=== PATIENT | female | born 1950 | race American Indian/Alaskan Native ===

== ENCOUNTER 2017-06-22 14:08 | Emergency (ER) | payer MEDICARE ==
[2017-06-22] MEDS ORDERED: ASPIRIN PO ONE (14:47)
[2017-06-22 15:15] LABS: Hematocrit 39.7 % (30.3-42.9); Hemoglobin 13.3 gm/dl (10.1-14.3); Mean Corpuscular HGB Conc 34 % (30-34); Mean Corpuscular Hemoglobin 32 pg (28-32); Mean Corpuscular Volume 95 fl (79-97); Platelet Count 198 K/mm3 (140-440); Red Blood Count 4.18 M/mm3 (3.65-5.03); Red Cell Distribution Width 13.6 % (13.2-15.2)
[2017-06-22 15:42] LABS: BUN/Creatinine Ratio 23; Blood Urea Nitrogen 14 mg/dL (7-17); Calcium 9.7 mg/dL (8.4-10.2); Hemolysis Index 7
[2017-06-22 15:55] LABS: Basophils % (Manual) 0 % (0.0-1.8); Ovalocytes Few; Platelet Estimate Consistent w Auto; Total Cells Counted 100
[2017-06-23] MEDS ORDERED: ASPIRIN ONE (08:21)
[2017-06-23] MEDS ORDERED: ULTRAM PO ONE (09:06)
--- NOTE | 2017-06-23 09:39 | Emergency Department Report ---
ED Chest Pain HPI - General Chief Complaint: Chest Pain Stated Complaint: SENT BY Time Seen by Provider: 06/23/17 08:34 Source: patient Mode of arrival: Ambulatory Limitations: No Limitations - History of Present Illness Initial Comments: 67-year-old female with a past medical history of GERD, hypertension, and previous back surgery presents to the hospital complaints of left-sided chest pain 2 days. Pain is constant, sharp, worse with movement and deep inspiration. Patient also has pain to her bilateral shoulder area. She denies nausea, vomiting, diaphoresis, or shortness of breath. Patient has similar episodes that went away spontaneously but this is more persistent. She denies any recent travel, history of PE/DVT, cough or cold symptoms, or fever. Patient was sent to the ED for evaluation after being evaluated her GI appointment for GERD. She reports last stress test one year ago with Verónica Doty. [facility], [facility] contacted a last cardiac workup was 2014 including negative stress test and cardiac echo. Severity scale (0 -10): 5 - Related Data Allergies Allergy/AdvReac Type Severity Reaction Status Date / Time celecoxib [From Celebrex] AdvReac Unknown Verified 06/23/17 08:24 Heart Score - HEART Score History: Slightly suspicious EKG: Non-specific Age: > 65 Risk factors: 1-2 risk factors Troponin: < normal limit HEART Score: 4 ED Review of Systems ROS: Stated complaint: SENT BY Other details as noted in HPI Comment: All other systems reviewed and negative Other: Constitutional: No fevers chills Eyes: No eye pain visual changes ENT: No ear pain or throat pain Neck: Denies pain Respiratory: Denies cough wheezing shortness of breath Cardiovascular: Denies palpitations, syncope GI: Denies abdominal pain, nausea, vomiting, diarrhea : Denies dysuria Musculoskeletal: Denies back pain Skin: Denies rash, lesions, erythema Neurologic: Denies headache, numbness, weakness Psychiatric: Denies suicidal ideation, hallucinations ED Past Medical Hx - Past Medical History Previous Medical History?: Yes Hx GERD: Yes Additional medical history: High Cholesterol - Surgical History Past Surgical History?: Yes Additional Surgical History: Back Surgery - Social History Smoking Status: Never Smoker Substance Use Type: Alcohol ED Physical Exam - General Limitations: No Limitations - Other Other exam information: General: No limitations, patient is alert in no acute distress Head exam: Atraumatic, normocephalic Eyes exam: Normal appearance ENT: Moist mucous membrane, normal oropharynx Neck exam: Normal inspection, full range of motion Respiratory exam: Clear to auscultation bilateral, no wheezes, rales, crackles Cardiovascular: Normal rate and rhythm, normal heart sounds. Chest wall nontender to palpation but increased pain with inspiration and movement Abdomen: Soft, nondistended, and nontender, with normal bowel sounds, no rebound, or guarding Extremity: Full range of motion normal inspection no deformity, no calf tenderness or edema Back: Normal Inspection, full range of motion, no tenderness Neurologic: Alert, oriented x3, cranial nerves intact, no motor or sensory deficit Psychiatric: normal affect, normal mood Skin: Warm, dry, intact ED Course Vital Signs 06/22/17 06/22/17 06/23/17 14:41 21:25 02:29 Temperature 98.1 F 98.6 F 98.2 F Pulse Rate 69 66 70 Respiratory 16 18 18 Rate Blood Pressure 134/79 148/83 136/59 O2 Sat by Pulse 99 98 98 Oximetry 06/23/17 06/23/17 08:16 09:25 Temperature 98.1 F Pulse Rate 66 Respiratory 18 16 Rate Blood Pressure 137/66 O2 Sat by Pulse 98 Oximetry - Reevaluation(s) Reevaluation #1: 06/23/17 10:05 pt stable received tramadol for pain - Consultations Consultation #1: 06/23/17 09:12 case d/w P WHite antonio heart: pt had neg stress and echo 2014 SUDHEER score - Sudheer Score Age > 65: (0) No Aspirin use within the Past 7 Days: (0) No 3 or more CAD Risk Factors: (1) Yes 2 or more Angina events in past 24 hrs: (0) No Known CAD with more than 50% Stenosis: (0) No Elevated Cardiac Markers: (0) No ST Deviation Greater than 0.5mm: (0) No SUDHEER Score: 1 ED Medical Decision Making - Lab Data Result diagrams: 06/22/17 15:01 06/22/17 15:01 Lab Results 06/22/17 06/22/17 06/22/17 Range/Units 15:01 15:01 18:34 WBC 5.7 (4.5-11.0) K/mm3 RBC 4.18 (3.65-5.03) M/mm3 Hgb 13.3 (10.1-14.3) gm/dl Hct 39.7 (30.3-42.9) % MCV 95 (79-97) fl MCH 32 (28-32) pg MCHC 34 (30-34) % RDW 13.6 (13.2-15.2) % Plt Count 198 (140-440) K/mm3 Lymph % (Auto) Oil Expert Add Manual Diff Complete Total Counted 100 Seg Neutrophils % Oil Expert Seg Neuts % (Manual) 30.0 L (40.0-70.0) % Band Neutrophils % 0 % Lymphocytes % (Manual) 61.0 H (13.4-35.0) % Reactive Lymphs % (Man) 0 % Monocytes % (Manual) 1.0 (0.0-7.3) % Eosinophils % (Manual) 8.0 H (0.0-4.3) % Basophils % (Manual) 0 (0.0-1.8) % Metamyelocytes % 0 % Myelocytes % 0 % Promyelocytes % 0 % Blast Cells % 0 % Nucleated RBC % Not Reportable Seg Neutrophils # Man 1.7 L (1.8-7.7) K/mm3 Band Neutrophils # 0.0 K/mm3 Lymphocytes # (Manual) 3.5 (1.2-5.4) K/mm3 Abs React Lymphs (Man) 0.0 K/mm3 Monocytes # (Manual) 0.1 (0.0-0.8) K/mm3 Eosinophils # (Manual) 0.5 H (0.0-0.4) K/mm3 Basophils # (Manual) 0.0 (0.0-0.1) K/mm3 Metamyelocytes # 0.0 K/mm3 Myelocytes # 0.0 K/mm3 Promyelocytes # 0.0 K/mm3 Blast Cells # 0.0 K/mm3 WBC Morphology Not Reportable Hypersegmented Neuts Not Reportable Hyposegmented Neuts Not Reportable Hypogranular Neuts Not Reportable Smudge Cells Not Reportable Toxic Granulation Not Reportable Toxic Vacuolation Not Reportable Dohle Bodies Not Reportable Pelger-Huet Anomaly Not Reportable Cesar Rods Not Reportable Platelet Estimate Consistent w auto Clumped Platelets Not Reportable Plt Clumps, EDTA Not Reportable Large Platelets Not Reportable Giant Platelets Not Reportable Platelet Satelliting Not Reportable Plt Morphology Comment Not Reportable RBC Morphology Not Reportable Dimorphic RBCs Not Reportable Polychromasia Not Reportable Hypochromasia Not Reportable Poikilocytosis Not Reportable Anisocytosis Not Reportable Microcytosis Not Reportable Macrocytosis Not Reportable Spherocytes Not Reportable Pappenheimer Bodies Not Reportable Sickle Cells Not Reportable Target Cells Not Reportable Tear Drop Cells Not Reportable Ovalocytes Few Helmet Cells Not Reportable Traore-Elsah Bodies Not Reportable [place] Rings Not Reportable Dominic Cells Not Reportable Bite Cells Not Reportable Crenated Cell Not Reportable Elliptocytes Not Reportable Acanthocytes (Spur) Not Reportable Rouleaux Not Reportable Hemoglobin C Crystals Not Reportable Schistocytes Not Reportable Malaria parasites Not Reportable Paul Bodies Not Reportable Hem Pathologist Commnt No D-Dimer (0-234) ng/mlDDU Sodium 140 (137-145) mmol/L Potassium 3.9 (3.6-5.0) mmol/L Chloride 101.0 (98-107) mmol/L Carbon Dioxide 25 (22-30) mmol/L Anion Gap 18 mmol/L BUN 14 (7-17) mg/dL Creatinine 0.6 L (0.7-1.2) mg/dL Estimated GFR > 60 ml/min BUN/Creatinine Ratio 23 % Glucose 93 (65-100) mg/dL Calcium 9.7 (8.4-10.2) mg/dL Troponin T < 0.010 < 0.010 (0.00-0.029) ng/mL 06/22/17 06/23/17 Range/Units 21:16 09:21 WBC (4.5-11.0) K/mm3 RBC (3.65-5.03) M/mm3 Hgb (10.1-14.3) gm/dl Hct (30.3-42.9) % MCV (79-97) fl MCH (28-32) pg MCHC (30-34) % RDW (13.2-15.2) % Plt Count (140-440) K/mm3 Lymph % (Auto) Add Manual Diff Total Counted Seg Neutrophils % Seg Neuts % (Manual) (40.0-70.0) % Band Neutrophils % % Lymphocytes % (Manual) (13.4-35.0) % Reactive Lymphs % (Man) % Monocytes % (Manual) (0.0-7.3) % Eosinophils % (Manual) (0.0-4.3) % Basophils % (Manual) (0.0-1.8) % Metamyelocytes % % Myelocytes % % Promyelocytes % % Blast Cells % % Nucleated RBC % Seg Neutrophils # Man (1.8-7.7) K/mm3 Band Neutrophils # K/mm3 Lymphocytes # (Manual) (1.2-5.4) K/mm3 Abs React Lymphs (Man) K/mm3 Monocytes # (Manual) (0.0-0.8) K/mm3 Eosinophils # (Manual) (0.0-0.4) K/mm3 Basophils # (Manual) (0.0-0.1) K/mm3 Metamyelocytes # K/mm3 Myelocytes # K/mm3 Promyelocytes # K/mm3 Blast Cells # K/mm3 WBC Morphology Hypersegmented Neuts Hyposegmented Neuts Hypogranular Neuts Smudge Cells Toxic Granulation Toxic Vacuolation Dohle Bodies Pelger-Huet Anomaly Cesar Rods Platelet Estimate Clumped Platelets Plt Clumps, EDTA Large Platelets Giant Platelets Platelet Satelliting Plt Morphology Comment RBC Morphology Dimorphic RBCs Polychromasia Hypochromasia Poikilocytosis Anisocytosis Microcytosis Macrocytosis Spherocytes Pappenheimer Bodies Sickle Cells Target Cells Tear Drop Cells Ovalocytes Helmet Cells Traore-Elsah Bodies [place] Rings Dominic Cells Bite Cells Crenated Cell Elliptocytes Acanthocytes (Spur) Rouleaux Hemoglobin C Crystals Schistocytes Malaria parasites Paul Bodies Hem Pathologist Commnt D-Dimer 230.34 (0-234) ng/mlDDU Sodium (137-145) mmol/L Potassium (3.6-5.0) mmol/L Chloride (98-107) mmol/L Carbon Dioxide (22-30) mmol/L Anion Gap mmol/L BUN (7-17) mg/dL Creatinine (0.7-1.2) mg/dL Estimated GFR ml/min BUN/Creatinine Ratio % Glucose (65-100) mg/dL Calcium (8.4-10.2) mg/dL Troponin T < 0.010 (0.00-0.029) ng/mL - EKG Data -: EKG Interpreted by Ne EKG shows normal: sinus rhythm, axis (13), QRS complexes (92), ST-T waves (no stemi) Rate: normal (64) - EKG Data 06/23/17 09:44 Repeat EKG in the ED without acute changes - Radiology Data Radiology results: report reviewed (chest x-ray: No acute) - Medical Decision Making Patient's pain is atypical. However, given her risk factors and age. cardiac enz neg x 3 She'll be admitted to the hospital for further cardiac workup. D-dimer neg - Differential Diagnosis MS, PE, atypical chest pain, costochondritis Critical Care Time: No Critical care attestation.: If time is entered above; I have spent that time in minutes in the direct care of this critically ill patient, excluding procedure time. ED Disposition Clinical Impression: Chest pain, GERD (gastroesophageal reflux disease) Disposition: OP ADMIT IP TO THIS HOSP Is pt being admited?: Yes Condition: Stable Time of Disposition: 10:07 (peter/hosp)
--- NOTE | 2017-06-23 09:41 | XRay Report ---
PA and lateral chest: Left-sided chest pain. There is a dextroscoliosis of the thoracic spine. Aorta slightly tortuous. The mediastinal contour and cardiac size are unremarkable. The lungs are clear. There is no vascular congestion. These findings are all unchanged compared to prior exam in November 2014. Impressions: No acute findings.
[2017-06-23] MEDS ORDERED: SODIUM CHLORIDE FLUSH SYRINGE 10 ML IV PRN (12:03)
[2017-06-23] MEDS ORDERED: NON-FORMULARY (Ranitidine Hcl [Zantac 150 Mg Tab] 150 MG) PO SCH (12:15)
--- NOTE | 2017-06-23 12:15 | History and Physical Report ---
History of Present Illness Date of examination: 06/23/17 Chief complaint: Left-sided Chest pain History of present illness: 67-year-old -[place] female with past medical history significant for hyperlipidemia, GERD presented to the emergency department complaining of left- sided chest pain for the last 3 days. Patient said the pain is sharp 10 out of 10 in its maximum, constant, radiated to both shoulders, no associated shortness of breath, sweating, palpitation. Pain is aggravated by cough and elevated by drinking Coke. Patient was pain-free by the time I evaluated her. REVIEW OF SYSTEMS: GENERAL: no weight change, no fatigue, no fever HEAD: no head ache EYES: no blurry vision, no acute visual loss EARS: no hearing loss, no discharge, no earache NOSE: no stuffiness, no sneezing, no discharge MOUTH, THROAT AND NECK: no bleeding gums, no sore throat, no swollen neck CARDIAC: As stated in the HPI. RESPIRATORY: no shortness of breath, no wheeze, no cough, no sputum, no hemoptysis, no asthma GI: no decreased appetite, no nausea, no vomiting, no dysphagia, no diarrhea, no constipation, no abdominal pain URINARY: no change in frequency, no urgency, no polyuria, no hematuria, no incontinence MUSCULOSKELETAL: no muscle weakness, no pain, no joint stiffness NEUROLOGIC: no loss of sensation/numbness, no tingling, no tremors, no weakness/ paralysis HEMATOLOGIC: no anemia, no easy bruising SKIN: no rashes ENDOCRINE: no heat/cold intolerance, no polyuria, no polydipsia, no thyroid problems, no diabetes PSYCHIATRIC: no anxiety, no depression, no suicidal ideations Past History Past Medical History: GERD, hyperlipidemia, other (GERD) Past Surgical History: Other (back surgery) Social history: full code. denies: smoking, alcohol abuse, prescription drug abuse Family history: no significant family history Medications and Allergies Allergies Allergy/AdvReac Type Severity Reaction Status Date / Time celecoxib [From Celebrex] AdvReac Unknown Verified 06/23/17 08:24 Home Medications Medication Instructions Recorded Confirmed Last Taken Type Aspirin [Adult Low Dose Aspirin EC] 81 mg PO DAILY 06/23/17 06/23/17 06/21/17 History Cholecalciferol (Vitamin D3) 1,000 unit PO QDAY 06/23/17 06/23/17 06/21/17 History [Vitamin D3] Ranitidine HCl [Zantac 150 MG TAB] 150 mg PO BID 06/23/17 06/23/17 06/21/17 History Rosuvastatin Calcium [Crestor] 10 mg PO HS 06/23/17 06/23/17 06/21/17 History Ubidecarenone [Coq-10] 200 mg PO DAILY 06/23/17 06/23/17 06/21/17 History traMADol [Ultram 50 MG tab] 50 mg PO Q12H PRN #20 tablet 06/23/17 Unknown Rx Exam - Physical Exam Narrative exam: Not in cardiopulmonary distress. The patient is obese. Vital signs as documented. Head exam is unremarkable. No scleral icterus . Neck is without jugular venous distension, thyromegaly, or carotid bruits. Lungs are clear to auscultation. Cardiac exam reveals regular rate and Rhythm. First and second heart sounds normal. No murmurs, rubs or gallops. Abdominal exam reveals normal bowel sounds, no masses, no organomegaly and no aortic enlargement. Extremities are nonedematous and both femoral and pedal pulses are normal. SHEAR SETTER: Alert and oriented 3. No focal weakness. - Constitutional Vitals: Temp Pulse Resp BP Pulse Ox 98.1 F 61 16 153/67 99 06/23/17 08:16 06/23/17 10:00 06/23/17 10:09 06/23/17 10:00 06/23/17 10:09 Results - Labs CBC & Chem 7: 06/23/17 12:18 06/23/17 12:18 Labs: Laboratory Last Values WBC 5.7 K/mm3 (4.5-11.0) 06/22/17 15:01 RBC 4.18 M/mm3 (3.65-5.03) 06/22/17 15:01 Hgb 13.3 gm/dl (10.1-14.3) 06/22/17 15:01 Hct 39.7 % (30.3-42.9) 06/22/17 15:01 MCV 95 fl (79-97) 06/22/17 15:01 MCH 32 pg (28-32) 06/22/17 15:01 MCHC 34 % (30-34) 06/22/17 15:01 RDW 13.6 % (13.2-15.2) 06/22/17 15:01 Plt Count 198 K/mm3 (140-440) 06/22/17 15:01 Lymph % (Auto) Infrastructure Project Manager 06/22/17 15:01 Add Manual Diff Complete 06/22/17 15:01 Total Counted 100 06/22/17 15:01 Seg Neutrophils % Infrastructure Project Manager 06/22/17 15:01 Seg Neuts % (Manual) 30.0 % (40.0-70.0) L 06/22/17 15:01 Band Neutrophils % 0 % 06/22/17 15:01 Lymphocytes % (Manual) 61.0 % (13.4-35.0) H 06/22/17 15:01 Reactive Lymphs % (Man) 0 % 06/22/17 15:01 Monocytes % (Manual) 1.0 % (0.0-7.3) 06/22/17 15:01 Eosinophils % (Manual) 8.0 % (0.0-4.3) H 06/22/17 15:01 Basophils % (Manual) 0 % (0.0-1.8) 06/22/17 15:01 Metamyelocytes % 0 % 06/22/17 15:01 Myelocytes % 0 % 06/22/17 15:01 Promyelocytes % 0 % 06/22/17 15:01 Blast Cells % 0 % 06/22/17 15:01 Nucleated RBC % Not Reportable 06/22/17 15:01 Seg Neutrophils # Man 1.7 K/mm3 (1.8-7.7) L 06/22/17 15:01 Band Neutrophils # 0.0 K/mm3 06/22/17 15:01 Lymphocytes # (Manual) 3.5 K/mm3 (1.2-5.4) 06/22/17 15:01 Abs React Lymphs (Man) 0.0 K/mm3 06/22/17 15:01 Monocytes # (Manual) 0.1 K/mm3 (0.0-0.8) 06/22/17 15:01 Eosinophils # (Manual) 0.5 K/mm3 (0.0-0.4) H 06/22/17 15:01 Basophils # (Manual) 0.0 K/mm3 (0.0-0.1) 06/22/17 15:01 Metamyelocytes # 0.0 K/mm3 06/22/17 15:01 Myelocytes # 0.0 K/mm3 06/22/17 15:01 Promyelocytes # 0.0 K/mm3 06/22/17 15:01 Blast Cells # 0.0 K/mm3 06/22/17 15:01 WBC Morphology Not Reportable 06/22/17 15:01 Hypersegmented Neuts Not Reportable 06/22/17 15:01 Hyposegmented Neuts Not Reportable 06/22/17 15:01 Hypogranular Neuts Not Reportable 06/22/17 15:01 Smudge Cells Not Reportable 06/22/17 15:01 Toxic Granulation Not Reportable 06/22/17 15:01 Toxic Vacuolation Not Reportable 06/22/17 15:01 Dohle Bodies Not Reportable 06/22/17 15:01 Pelger-Huet Anomaly Not Reportable 06/22/17 15:01 Cesar Rods Not Reportable 06/22/17 15:01 Platelet Estimate Consistent w auto 06/22/17 15:01 Clumped Platelets Not Reportable 06/22/17 15:01 Plt Clumps, EDTA Not Reportable 06/22/17 15:01 Large Platelets Not Reportable 06/22/17 15:01 Giant Platelets Not Reportable 06/22/17 15:01 Platelet Satelliting Not Reportable 06/22/17 15:01 Plt Morphology Comment Not Reportable 06/22/17 15:01 RBC Morphology Not Reportable 06/22/17 15:01 Dimorphic RBCs Not Reportable 06/22/17 15:01 Polychromasia Not Reportable 06/22/17 15:01 Hypochromasia Not Reportable 06/22/17 15:01 Poikilocytosis Not Reportable 06/22/17 15:01 Anisocytosis Not Reportable 06/22/17 15:01 Microcytosis Not Reportable 06/22/17 15:01 Macrocytosis Not Reportable 06/22/17 15:01 Spherocytes Not Reportable 06/22/17 15:01 Pappenheimer Bodies Not Reportable 06/22/17 15:01 Sickle Cells Not Reportable 06/22/17 15:01 Target Cells Not Reportable 06/22/17 15:01 Tear Drop Cells Not Reportable 06/22/17 15:01 Ovalocytes Few 06/22/17 15:01 Helmet Cells Not Reportable 06/22/17 15:01 Traore-Lipscomb Bodies Not Reportable 06/22/17 15:01 [place] Rings Not Reportable 06/22/17 15:01 Dominic Cells Not Reportable 06/22/17 15:01 Bite Cells Not Reportable 06/22/17 15:01 Crenated Cell Not Reportable 06/22/17 15:01 Elliptocytes Not Reportable 06/22/17 15:01 Acanthocytes (Spur) Not Reportable 06/22/17 15:01 Rouleaux Not Reportable 06/22/17 15:01 Hemoglobin C Crystals Not Reportable 06/22/17 15:01 Schistocytes Not Reportable 06/22/17 15:01 Malaria parasites Not Reportable 06/22/17 15:01 Paul Bodies Not Reportable 06/22/17 15:01 Hem Pathologist Commnt No 06/22/17 15:01 D-Dimer 230.34 ng/mlDDU (0-234) 06/23/17 09:21 Sodium 140 mmol/L (137-145) 06/22/17 15:01 Potassium 3.9 mmol/L (3.6-5.0) 06/22/17 15:01 Chloride 101.0 mmol/L (98-107) 06/22/17 15:01 Carbon Dioxide 25 mmol/L (22-30) 06/22/17 15:01 Anion Gap 18 mmol/L 06/22/17 15:01 BUN 14 mg/dL (7-17) 06/22/17 15:01 Creatinine 0.6 mg/dL (0.7-1.2) L 06/22/17 15:01 Estimated GFR > 60 ml/min 06/22/17 15:01 BUN/Creatinine Ratio 23 % 06/22/17 15:01 Glucose 93 mg/dL (65-100) 06/22/17 15:01 Calcium 9.7 mg/dL (8.4-10.2) 06/22/17 15:01 Troponin T < 0.010 ng/mL (0.00-0.029) 06/22/17 21:16 Assessment and Plan Assessment and plan: Chest pain - Troponin negative, EKG no STEMI - patient said has been followed by [facility] and negative stress test in 2014, Cardiology consult -Cardiology consulted and recommended no cardiac workup HLD - Continue rosuvastatin GERD - Continue Ranitidine DVT prophylaxis - lovenox Disposition - to telemetry floor Advance Directives: Yes VTE prophylaxis?: Chemical Plan of care discussed with patient/family: Yes
[2017-06-23] MEDS ORDERED: BABY ASPIRIN PO STA (12:19)
[2017-06-23] MEDS ORDERED: MORPHINE IV PRN (12:19)
[2017-06-23 12:30] VITALS: BP 151/61
[2017-06-23 12:42] LABS: Hematocrit 40.2 % (30.3-42.9); Hemoglobin 12.9 gm/dl (10.1-14.3); Mean Corpuscular HGB Conc 32 % (30-34); Mean Corpuscular Hemoglobin 30 pg (28-32); Mean Corpuscular Volume 95 fl (79-97); Platelet Count 207 K/mm3 (140-440); Red Blood Count 4.24 M/mm3 (3.65-5.03); Red Cell Distribution Width 13.5 % (13.2-15.2)
[2017-06-23 12:48] LABS: BUN/Creatinine Ratio 16; Blood Urea Nitrogen 11 mg/dL (7-17); Calcium 9.5 mg/dL (8.4-10.2); Hemolysis Index 16
[2017-06-23 13:45] LABS: Basophils % (Manual) 0 % (0.0-1.8); Total Cells Counted 100
[2017-06-23 13:46] LABS: RBC Morphology Normal
--- NOTE | 2017-06-23 14:52 | Discharge Summary ---
Providers - Providers 06/23/17 Consult to Cardiac Rehabilitation [CONS] Routine Reason For Exam: Phase I 06/23/17 12:04 Consult to Cardiology [CONS] Routine Consulting Provider[facility] Arsh GORDON Reason For Exam: chest pain Primary care physician: KENISHA ANDUJAR Hospitalization Reason for admission: chest pain Condition: Stable Hospital course: 67-year-old -[place] female with past medical history significant for hyperlipidemia, GERD presented to the emergency department complaining of left- sided chest pain for the last 3 days. Patient said the pain is sharp 10 out of 10 in its maximum, constant, radiated to both shoulders, no associated shortness of breath, sweating, palpitation. Pain is aggravated by cough and elevated by drinking Coke. Patient was pain-free by the time I evaluated her. Patient was evaluated by [facility] and Recommended No Further Cardiac Workup. Given the Patient had negative stress test in 2014, 3 sets of troponin were negative, EKG no abnormality identified. Patient was chest pain-free. Cardiology recommended to discharge with tramadol. Pain is most likely due to GERD. Disposition: - TO HOME OR SELFCARE Time spent for discharge: 31 minutes - Discharge Diagnoses (1) Chest pain Status: Acute (2) GERD (gastroesophageal reflux disease) Status: Acute Core Measure Documentation - Palliative Care Palliative Care/ Comfort Measures: Not Applicable - Core Measures Any of the following diagnoses?: none Exam - Physical Exam Narrative exam: Not in cardiopulmonary distress. The patient is obese. Vital signs as documented. Head exam is unremarkable. No scleral icterus . Neck is without jugular venous distension, thyromegaly, or carotid bruits. Lungs are clear to auscultation. Cardiac exam reveals regular rate and Rhythm. First and second heart sounds normal. No murmurs, rubs or gallops. Abdominal exam reveals normal bowel sounds, no masses, no organomegaly and no aortic enlargement. Extremities are nonedematous and both femoral and pedal pulses are normal. PATIENT FINANCIAL ADVOCATE: Alert and oriented 3. No focal weakness. - Constitutional Vitals: Temp Pulse Resp BP Pulse Ox 98.1 F 60 13 151/61 98 06/23/17 08:16 06/23/17 13:01 06/23/17 13:01 06/23/17 13:01 06/23/17 13:01 Plan Follow up with: KENISHA ANDUJAR MD [Primary Care Provider] - 7 Days Prescriptions: traMADol [Ultram 50 MG tab] 50 mg PO Q12H PRN #20 tablet PRN Reason: Pain
--- NOTE | 2017-06-23 14:56 | Consultation ---
History of Present Illness Consult date: 06/23/17 Consult reason: chest pain History of present illness: The patient is a 67-year-old woman with a diet-controlled hypertension and hyperlipidemia. No prior cardiac history. A stress test and echocardiogram done as an outpatient less than 2 years ago were both negative. She presented to the emergency room with several days of left sided chest pain. She describes pain localized to the left lower rib cage, extending to the mid axillary line. The pain was positional, worse with bending over and moving the thorax. There was also a pleuritic component. The pain was also aggravated by coughing. The pain was reproducible by palpation over the left lower rib cage. She presented to the emergency room and after ER evaluation, cardiac consultation was requested. The 12-lead EKG is normal sinus rhythm, left ventricular hypertrophy by voltage criteria, but no significant ST or T-wave abnormalities. 3 sets of cardiac enzymes are negative. Past History Past Medical History: GERD, hypertension, hyperlipidemia Past Surgical History: Other (back surgery) Social history: full code. denies: smoking, alcohol abuse, prescription drug abuse Family history: no significant family history Medications and Allergies Allergies Allergy/AdvReac Type Severity Reaction Status Date / Time celecoxib [From Celebrex] AdvReac Unknown Verified 06/23/17 08:24 Home Medications Medication Instructions Recorded Confirmed Last Taken Type Aspirin [Adult Low Dose Aspirin EC] 81 mg PO DAILY 06/23/17 06/23/17 06/21/17 History Cholecalciferol (Vitamin D3) 1,000 unit PO QDAY 06/23/17 06/23/17 06/21/17 History [Vitamin D3] Ranitidine HCl [Zantac 150 MG TAB] 150 mg PO BID 06/23/17 06/23/17 06/21/17 History Rosuvastatin Calcium [Crestor] 10 mg PO HS 06/23/17 06/23/17 06/21/17 History Ubidecarenone [Coq-10] 200 mg PO DAILY 06/23/17 06/23/17 06/21/17 History traMADol [Ultram 50 MG tab] 50 mg PO Q12H PRN #20 tablet 06/23/17 Unknown Rx Active Meds: Active Medications Aspirin (Baby Aspirin) 81 mg PO QDAY [facility] Miscellaneous Medication (Cholecalciferol (Vitamin D3) [Vitamin D3]) 1,000 unit PO QDAY [facility] Miscellaneous Medication (Ranitidine Hcl [Zantac 150 Mg Tab]) 150 mg PO BID [facility] Miscellaneous Medication (Rosuvastatin Calcium [Crestor]) 10 mg PO HS [facility] Miscellaneous Medication (Ubidecarenone [Coq-10]) 200 mg PO DAILY [facility] Morphine Sulfate (Morphine) 2 mg IV Q4H PRN PRN Reason: Chest Pain Sodium Chloride (Sodium Chloride Flush Syringe 10 Ml) 10 ml IV PRN PRN PRN Reason: LINE FLUSH Review of Systems Cardiovascular: chest pain, no orthopnea, no palpitations, no rapid/irregular heart beat, no edema, no syncope, no lightheadedness, no shortness of breath Physical Examination Vital Signs Temp Pulse Resp BP Pulse Ox 98.1 F 69 16 134/79 99 06/22/17 14:41 06/22/17 14:41 06/22/17 14:41 06/22/17 14:41 06/22/17 14:41 General appearance: no acute distress HEENT: Positive: PERRL Neck: Positive: neck supple Cardiac: Positive: Reg Rate and Rhythm Lungs: Positive: clear to auscultation Neuro: Positive: Grossly Intact Abdomen: Positive: Soft Female genitourinary: deferred Skin: Positive: Clear Extremities: Absent: edema Results 06/23/17 12:18 06/23/17 12:18 CBC 06/22/17 06/23/17 Range/Units 15:01 12:18 WBC 5.7 4.9 (4.5-11.0) K/mm3 RBC 4.18 4.24 (3.65-5.03) M/mm3 Hgb 13.3 12.9 (10.1-14.3) gm/dl Hct 39.7 40.2 (30.3-42.9) % Plt Count 198 207 (140-440) K/mm3 Comprehensive Metabolic Panel 06/22/17 06/23/17 Range/Units 15:01 12:18 Sodium 140 140 (137-145) mmol/L Potassium 3.9 4.2 (3.6-5.0) mmol/L Chloride 101.0 101.8 (98-107) mmol/L Carbon Dioxide 25 26 (22-30) mmol/L BUN 14 11 (7-17) mg/dL Creatinine 0.6 L 0.7 (0.7-1.2) mg/dL Glucose 93 99 (65-100) mg/dL Calcium 9.7 9.5 (8.4-10.2) mg/dL EKG interpretations - Telemetry EKG Rhythm: Sinus Rhythm Assessment and Plan The patient presents with atypical chest pain which appears musculoskeletal. There are no anginal characteristics of this pain, ECG and cardiac enzymes are benign. The patient looks and feels well at this time and wants to go home. The emergency room has reported at negative pulmonary embolism workup with normal d-dimer. No cardiac indication for admission or further ischemic stress testing. Recommend that the patient is managed with nonsteroidal anti-inflammatory for musculoskeletal chest pain.
[2017-06-23] MEDS ORDERED: NON-FORMULARY (Rosuvastatin Calcium [Crestor] 10 MG) PO SCH (22:00)
[2017-06-24] MEDS ORDERED: NON-FORMULARY (Cholecalciferol (Vitamin D3) [Vitamin D3] 1,000 UNIT) PO SCH (10:00)
[2017-06-24] MEDS ORDERED: BABY ASPIRIN PO SCH (10:00)
[2017-06-24] MEDS ORDERED: UBIDECARENONE 200 MG PO SCH (10:00)
== END 2017-06-23 15:01 | disposition home or self-care (01) ==
LOC: ED 14:08 → 4A 06-23 12:22 → UNDOADMIN 06-23 12:22 → ED 06-23 15:01
DX: K21.9 Gastro-esophageal reflux disease without esophagitis (principal); R07.9 Chest pain, unspecified; E78.00 Pure hypercholesterolemia, unspecified; Z88.8 Allergy status to other drugs, medicaments and biological substances
CPT/HCPCS: 36415; 71046; 80048; 84484; 85007; 85025; 85379; 93005; 93010; 99284